=== PATIENT | female | born 1975 | race Caucasian/White ===

== ENCOUNTER → 2016-09-15 | Outpatient (CLI) | payer OTHER ==
--- NOTE | 2016-09-18 11:50 | WOMENS IMAGING REPORT ---
EXAM DESCRIPTION: BILAT SCREENING MAMMO W/CAD COMPLETED DATE/TIME: 09/18/2016 8:06 am REASON FOR STUDY: ROUTINE SCREENING; Z12.31 Z12.31 ENCNTR SCREEN MAMMOGRAM FOR MALIGNANT NEOPLASM O F SHILPA COMPARISON: None. TECHNIQUE: Standard craniocaudal and mediolateral oblique views of each breast recorded using [place] acquisition. LIMITATIONS: None. FINDINGS: No masses, calcifications or architectural distortion. No areas of suspicion. Read with the assistance of CAD. .[facility] - R2 Cenova Version 1.3 .[facility] Imaging - R2 Cenova Version 1.3 .[facility] - R2 Cenova Version 2.4 .[facility] Cenova Version 2.4 .[facility] - R2 Casting Repairer Version 9.2 IMPRESSION: NORMAL MAMMOGRAM. BIRADS 1. BREAST DENSITY: b. There are scattered areas of fibroglandular density. BIRAD: 1 NEGATIVE RECOMMENDATION: ROUTINE SCREENING COMMENT: The patient has been notified of the results by letter per SA requirements. Additional no tification policies are in place for contacting patient with suspicious or incomplete findings. Quality ID #225: The [employer] recommends an annual screening mammogram for women aged 40 years or over. This facility utilizes a reminder system to ensure that all patients receive reminder letters, and/or direct phone calls for appointments. This includes reminders for routine scr eening mammograms, diagnostic mammograms, or other Breast Imaging Interventions when appropriate. Th is patient will be placed in the appropriate reminder system. The [employer] (ACR) has developed recommendations for screening MRI of the breast s in certain patient populations, to be used in conjunction with mammography. Breast MRI surveillanc e may be appropriate for women with more than 20% lifetime risk of developing breast cancer as deter mined by genetic testing, significant family history of the disease, or history of mantle radiation f or Hodgkins Disease. ACR Practice Guidelines 2008. TECHNICAL DOCUMENTATION: FINDING NUMBER: (1) ASSESSMENT: (1) JOB ID: [id number] [employer]- All Rights Reserved
== END ==
LOC: RAD 14:57
PROVIDERS: ATTEND Family Medicine
DX: Z12.31 Encounter for screening mammogram for malignant neoplasm of breast (principal)
CPT/HCPCS: 77067; G0202

== ENCOUNTER → 2017-11-13 | Outpatient (CLI) | payer OTHER ==
--- NOTE | 2017-11-13 16:14 | WOMENS IMAGING REPORT ---
EXAM DESCRIPTION: BILAT SCREENING MAMMO W/CAD COMPLETED DATE/TIME: 11/13/2017 3:49 pm REASON FOR STUDY: SCREENING MAMMO Z12.31 ENCNTR SCREEN MAMMOGRAM FOR MALIGNANT NEOPLASM OF [place]ILPA COMPARISON: 2016 TECHNIQUE: Standard craniocaudal and mediolateral oblique views of each breast recorded using digita l acquisition. LIMITATIONS: None. FINDINGS: RIGHT BREAST MASSES: No suspicious masses. CALCIFICATIONS: No new or suspicious calcifications. ARCHITECTURAL DISTORTION: None. DEVELOPING DENSITY: Upper inner quadrant 12 o'clock about 4 cm deep to the nipple. ASYMMETRY: None noted. OTHER: No other significant findings. LEFT BREAST MASSES: No suspicious masses. CALCIFICATIONS: No new or suspicious calcifications. ARCHITECTURAL DISTORTION: None. DEVELOPING DENSITY: None. ASYMMETRY: None noted. OTHER: No other significant findings. Read with the assistance of CAD. .[facility] - R2 Cenova Version 1.3 .[facility] - R2 Cenova Version 1.3 .[facility] - R2 Cenova Version 2.4 .[facility] - R2 Cenova Version 2.4 .[facility] - R2 Electrical Construction Project Manager Version 9.2 IMPRESSION: Developing density right breast. BREAST DENSITY: b. There are scattered areas of fibroglandular density. BIRAD: 0 Incomplete: Needs Additional Imaging Evaluation and/or prior Mammograms for Comparison. RECOMMENDATION: RECOMMENDED FOLLOW-UP: True lateral cone compression views and potential ultrasound of the right breast. The patient will be contacted for additional imaging. COMMENT: The patient has been notified of the results by letter per SA requirements. Additional no tification policies are in place for contacting patient with suspicious or incomplete findings. Quality ID #225: The [employer] recommends an annual screening mammogram for women aged 40 years or over. This facility utilizes a reminder system to ensure that all patients receive reminder letters, and/or direct phone calls for appointments. This includes reminders for routine scr eening mammograms, diagnostic mammograms, or other Breast Imaging Interventions when appropriate. Th is patient will be placed in the appropriate reminder system. The [employer] (ACR) has developed recommendations for screening MRI of the breast s in certain patient populations, to be used in conjunction with mammography. Breast MRI surveillanc e may be appropriate for women with more than 20% lifetime risk of developing breast cancer as deter mined by genetic testing, significant family history of the disease, or history of mantle radiation f or Hodgkins Disease. ACR Practice Guidelines 2008. TECHNICAL DOCUMENTATION: FINDING NUMBER: (1) ASSESSMENT: (1) JOB ID: [id number] [employer]- All Rights Reserved Reading location - IP/workstation name: [email or web address]
== END ==
LOC: WI 14:34
PROVIDERS: ATTEND Family Medicine
DX: Z12.31 Encounter for screening mammogram for malignant neoplasm of breast (principal); R92.8 Other abnormal and inconclusive findings on diagnostic imaging of breast
CPT/HCPCS: 77067

== ENCOUNTER → 2017-11-29 | Outpatient (CLI) | payer OTHER ==
--- NOTE | 2017-11-29 09:28 | WOMENS IMAGING REPORT ---
EXAM DESCRIPTION: RIGHT DIAGNOSTIC MAMMO W/CAD COMPLETED DATE/TIME: 11/29/2017 8:40 am REASON FOR STUDY: NODULAR DENSITY N63.41 UNSPECIFIED LUMP IN RIGHT BREAST, SUBAREOLAR COMPARISON: 11/13/2017 TECHNIQUE: True lateral, CC, MLO and cone compression views. LIMITATIONS: None. FINDINGS: BREAST: right MASSES: No suspicious masses. CALCIFICATIONS: No new or suspicious calcifications. ARCHITECTURAL DISTORTION: None. DEVELOPING DENSITY: None. ASYMMETRY: None noted. OTHER: No other significant findings. IMPRESSION: No evidence of malignancy. BREAST DENSITY: b. There are scattered areas of fibroglandular density. BIRAD: 1 Negative. RECOMMENDATION: RECOMMENDED FOLLOW UP: Birads 1 or 2: The patient should resume routine screening . SPECIFIC INTERVENTION/IMAGING/CONSULTATION RECOMMENDED:No additional intervention/ imaging/consultati on needed at this time. COMMUNICATION:The imaging findings were not discussed with the patient. Her referring provider has be en notified of the findings. COMMENT: The patient has been notified of the results by letter per SA requirements. Additional no tification policies are in place for contacting patient with suspicious or incomplete findings. Quality ID #225: The [employer] recommends an annual screening mammogram for women aged 40 years or over. This facility utilizes a reminder system to ensure that all patients receive reminder letters, and/or direct phone calls for appointments. This includes reminders for routine scr eening mammograms, diagnostic mammograms, or other Breast Imaging Interventions when appropriate. Th is patient will be placed in the appropriate reminder system. The [employer] (ACR) has developed recommendations for screening MRI of the breast s in certain patient populations, to be used in conjunction with mammography. Breast MRI surveillanc e may be appropriate for women with more than 20% lifetime risk of developing breast cancer as deter mined by genetic testing, significant family history of the disease, or history of mantle radiation f or Hodgkins Disease. ACR Practice Guidelines 2008. TECHNICAL DOCUMENTATION: FINDING NUMBER: (1) ASSESSMENT: (1) JOB ID: [id number] [employer]- All Rights Reserved Reading location - IP/workstation name: [facility]-[email or web address]
== END ==
LOC: WI 08:22
PROVIDERS: ATTEND Family Medicine
DX: N63.41 Unspecified lump in right breast, subareolar (principal)

== ENCOUNTER 2018-10-22 17:48 | Emergency (ER) | payer OTHER ==
--- NOTE | 2018-10-22 18:57 | ER Document Report ---
ED Medical Screen (RME) - General Chief Complaint: Breast Problem Stated Complaint: SWOLLEN BREAST Time Seen by Provider: 10/22/18 18:49 Primary Care Provider: GINNY SWENSON MD [Primary Care Provider] - Follow up as needed Mode of Arrival: Ambulatory Information source: Patient Notes: Patient presents today with complaints of feeling swelling in her left breast. Patient's mother has history of breast cancer. Patient reports she felt like she had some heartburn today and when her daughter felt her chest she noticed of swelling in her left breast. She reports both breasts are the same size. She denies nipple discharge. Reports she had an abnormal mammogram last November. She is scheduled for another mammogram this November. She denies fever vomiting diarrhea. Patient has history of mental disorders but denies diabetes cardiac disease. I have greeted and performed a rapid initial assessment of this patient. A comprehensive ED assessment and evaluation of the patient, analysis of test results and completion of the medical decision making process will be conducted by additional ED providers. Dictation of this chart was performed using voice recognition software; therefore, there may be some unintended grammatical errors. TRAVEL OUTSIDE OF THE [place] IN LAST 30 DAYS: No - Related Data Allergies/Adverse Reactions: metronidazole [From Flagyl] Allergy (Severe, Verified 10/22/18 17:51) rash/hives tetracycline [Tetracycline] Allergy (Severe, Verified 10/22/18 17:51) Hives sulfamethoxazole [From Septra] Allergy (Verified 10/22/18 17:51) trimethoprim [From Septra] Allergy (Verified 10/22/18 17:51) Past Medical History - Past Medical History Cardiac Medical History: Denies: Hx Coronary Artery Disease, Hx Heart Attack, Hx Hypertension Pulmonary Medical History: Reports: Hx Pneumonia Denies: Hx Asthma, Hx Bronchitis, Hx COPD Neurological Medical History: Denies: Hx Cerebrovascular Accident, Hx Seizures Musculoskeltal Medical History: Denies Hx Arthritis Psychiatric Medical History: Reports: Hx Bipolar Disorder Past Surgical History: Reports: Hx Appendectomy, Hx Section, Hx Hysterectomy - Immunizations Hx Diphtheria, Pertussis, Tetanus Vaccination: Yes Physical Exam - Vital signs Vitals: Temp Pulse Resp BP Pulse Ox 98.3 F 85 14 114/58 L 97 10/22/18 17:55 10/22/18 17:55 10/22/18 17:55 10/22/18 17:55 10/22/18 17:55 Course - Vital Signs Vital signs: Temp Pulse Resp BP Pulse Ox 98.3 F 85 14 114/58 L 97 10/22/18 17:55 10/22/18 17:55 10/22/18 17:55 10/22/18 17:55 10/22/18 17:55 Doctor's Discharge - Discharge Referrals: GINNY SWENSON MD [Primary Care Provider] - Follow up as needed
[2018-10-22 22:56] VITALS: BP 105/63
--- NOTE | 2018-10-22 23:06 | ER Document Report ---
ED General - General Chief Complaint: Breast Problem Stated Complaint: SWOLLEN BREAST Time Seen by Provider: 10/22/18 18:49 Primary Care Provider: GINNY SWENSON MD [Primary Care Provider] - Follow up as needed Mode of Arrival: Ambulatory TRAVEL OUTSIDE OF THE [place] IN LAST 30 DAYS: No - HPI Notes: Patient is a 43-year-old female presents emergency department for evaluation of the abnormality on breast exam. She was having heartburn earlier today. Her daughter had her hand on her chest, noted an asymmetry in her chest, so she presents here to the emergency department for evaluation. The patient has been having regular mammograms. Her last one was in November. She states that it was noted to be abnormal, but it was found that it was most likely just secondary to overlying tissues. She denies any abnormal weight loss. No nipple inversion. No nipple discharge. No night sweats. - Related Data Allergies/Adverse Reactions: metronidazole [From Flagyl] Allergy (Severe, Verified 10/22/18 17:51) rash/hives tetracycline [Tetracycline] Allergy (Severe, Verified 10/22/18 17:51) Hives sulfamethoxazole [From Septra] Allergy (Verified 10/22/18 17:51) trimethoprim [From Septra] Allergy (Verified 10/22/18 17:51) Past Medical History - General Information source: Patient - Social History Smoking Status: Current Every Day Smoker Chew tobacco use (# tins/day): No Frequency of alcohol use: None Drug Abuse: None Family History: Malignancy - Colon cancer in father, breast cancer in mother Patient has suicidal ideation: No Patient has homicidal ideation: No - Past Medical History Cardiac Medical History: Denies: Hx Coronary Artery Disease, Hx Heart Attack, Hx Hypertension Pulmonary Medical History: Reports: Hx Pneumonia Denies: Hx Asthma, Hx Bronchitis, Hx COPD Neurological Medical History: Denies: Hx Cerebrovascular Accident, Hx Seizures Renal/ Medical History: Denies: Hx Peritoneal Dialysis Musculoskeletal Medical History: Denies Hx Arthritis Psychiatric Medical History: Reports: Hx Bipolar Disorder Past Surgical History: Reports: Hx Appendectomy, Hx Section, Hx Hysterectomy - Immunizations Hx Diphtheria, Pertussis, Tetanus Vaccination: Yes Review of Systems - Review of Systems Constitutional: No symptoms reported EENT: No symptoms reported Cardiovascular: No symptoms reported Respiratory: No symptoms reported Gastrointestinal: No symptoms reported Genitourinary: No symptoms reported Female Genitourinary: No symptoms reported Musculoskeletal: No symptoms reported Skin: No symptoms reported Neurological/Psychological: No symptoms reported Physical Exam - Vital signs Vitals: Temp Pulse Resp BP Pulse Ox 98.3 F 85 14 114/58 L 97 10/22/18 17:55 10/22/18 17:55 10/22/18 17:55 10/22/18 17:55 10/22/18 17:55 - Notes Notes: Vital signs reviewed, please refer to chart. Head is normocephalic, atraumatic. Pupils equal round, reactive to light. Neck is supple without meningismus. Heart is regular rate and rhythm. Lungs are clear to auscultation bilaterally. Examination of the breast feels no obvious deformity. They are symmetrical. Breast exam is performed with ALEX Sinha, supervising gate tender in the room. There is an non-discrete firmness noted in the left breast, just left of the sternum. No overlying skin changes. No other discrete masses are palpated. Nipples are not inverted, no discharge. Abdomen is soft, nontender, normoactive bowel sounds throughout. Extremities without cyanosis, clubbing. Posterior calves are nontender. Peripheral pulses are equal. Skin is warm and dry. Course - Re-evaluation Re-evalutation: 10/22/18 23:09 Patient presents emergency department for evaluation. She does have palpable abnormality to her breast tissue on the left. I am unable to palpate a discrete mass, and do not believe that an ultrasound would be of use here through the emergency department. However, given her significant family history, I do recommend that she have very close follow-up of this. She voiced understanding to this. [facility]. She is to return the emergency department for worsening or concerning symptoms of any sort. - Vital Signs Vital signs: Temp Pulse Resp BP Pulse Ox 97.9 F 83 18 105/63 97 10/22/18 22:54 10/22/18 22:54 10/22/18 22:54 10/22/18 22:54 10/22/18 22:54 Discharge - Discharge Clinical Impression: Left breast mass Condition: Stable Disposition: HOME, SELF-CARE Instructions: Breast Lumps ([facility]) Additional Instructions: There was an abnormality palpated on your breast exam today. Given your family history, it is urgent that you obtain an mammogram and/or ultrasound as soon as possible. [facility]. If you develop worsening or new concerning symptoms of any sort, return immediately to the emergency department for evaluation. Referrals: GINNY SWENSON MD [Primary Care Provider] - Follow up as needed
== END 2018-10-22 23:00 | disposition home or self-care (01) ==
LOC: ER 17:48
DX: N63.0 Unspecified lump in unspecified breast (principal); Z88.1 Allergy status to other antibiotic agents; F17.200 Nicotine dependence, unspecified, uncomplicated; Z80.3 Family history of malignant neoplasm of breast; Z80.0 Family history of malignant neoplasm of digestive organs
CPT/HCPCS: 99283

== ENCOUNTER → 2018-11-20 | Outpatient (CLI) | payer OTHER ==
--- NOTE | 2018-11-21 10:36 | WOMENS IMAGING REPORT ---
EXAM DESCRIPTION: 3D DX MAMMO BILAT; U/S BREAST UNILAT LIMITED COMPLETED DATE/TIME: 11/20/2018 12:49 pm; 11/20/2018 1:35 pm REASON FOR STUDY: R92.2 ABNORMAL FINDING IN LEFT BREAST; LT BREAST R92.2 R92.0 MAMMOGRAPHIC MICROCA LCIFICATION FOUND ON DX IMAGING OF COMPARISON: 11/13/2017 and 09/15/2016. EXAM PARAMETERS: Standard craniocaudal and mediolateral oblique views of each breast recorded using digital acquisition and breast tomosynthesis. Additional true lateral images of the left breast acquired with tomosynthesis. Read with the assistance of CAD: .[employer] - [employer] Pulverizing Operator Version 9.2 LIMITATIONS: None. FINDINGS: RIGHT BREAST MASSES: No suspicious masses. CALCIFICATIONS: No new or suspicious calcifications. ARCHITECTURAL DISTORTION: None. DEVELOPING DENSITY: None. ASYMMETRY: None noted. OTHER: No other significant findings. LEFT BREAST MASSES: No suspicious masses. CALCIFICATIONS: No new or suspicious calcifications. ARCHITECTURAL DISTORTION: None. DEVELOPING DENSITY: None. ASYMMETRY: None noted. OTHER: No other significant finding. BREAST ULTRASOUND: TECHNIQUE: Static and dynamic grayscale images acquired of the left breast, 12 o'clock location, in t he specific areas of clinical/mammographic concern. Selected color Doppler images recorded. ELASTOGRAPHY PERFORMED: No. LIMITATIONS: None. FINDINGS: MASS: No mass identified. Normal glandular tissue. ELASTOGRAPHY CHARACTERISTICS: Not applicable. OTHER: No other significant finding. IMPRESSION: Stable bilateral mammogram. No worrisome mammographic findings in either breast. No wo rrisome sonographic findings in the superior left breast in the area of concern. BREAST DENSITY: b. There are scattered areas of fibroglandular density. BIRAD: ASSESSMENT: 1 Negative. RECOMMENDATION: RECOMMENDED FOLLOW UP: Birads 1 or 2: No breast imaging finding to explain the patie nt's presenting complaint. Further intervention should be based on the degree of clinical suspicion. SPECIFIC INTERVENTION/IMAGING/CONSULTATION RECOMMENDED:No additional intervention/ imaging/consultati on needed at this time. COMMUNICATION:The imaging findings were not discussed with the patient. Her referring provider has be en notified of the findings. COMMENT: The patient has been notified of the results by letter per MQSA requirements. Additional no tification policies are in place for contacting patient with suspicious or incomplete findings. Quality ID #225: The [employer] recommends an annual screening mammogram for women aged 40 years or over. This facility utilizes a reminder system to ensure that all patients receive reminder letters, and/or direct phone calls for appointments. This includes reminders for routine scr eening mammograms, diagnostic mammograms, or other Breast Imaging Interventions when appropriate. Th is patient will be placed in the appropriate reminder system. TECHNICAL DOCUMENTATION: FINDING NUMBER: (1) ASSESSMENT: (1) JOB ID: [id number] [employer]- All Rights Reserved Reading location - IP/workstation name: [email or web address]
--- NOTE | 2018-11-21 10:36 | WOMENS IMAGING REPORT ---
EXAM DESCRIPTION: 3D DX MAMMO BILAT; U/S BREAST UNILAT LIMITED COMPLETED DATE/TIME: 11/20/2018 12:49 pm; 11/20/2018 1:35 pm REASON FOR STUDY: R92.2 ABNORMAL FINDING IN LEFT BREAST; LT BREAST R92.2 R92.0 MAMMOGRAPHIC MICROCA LCIFICATION FOUND ON DX IMAGING OF COMPARISON: 11/13/2017 and 09/15/2016. EXAM PARAMETERS: Standard craniocaudal and mediolateral oblique views of each breast recorded using digital acquisition and breast tomosynthesis. Additional true lateral images of the left breast acquired with tomosynthesis. Read with the assistance of CAD: .[employer] - [employer] Carpenter Inspector Version 9.2 LIMITATIONS: None. FINDINGS: RIGHT BREAST MASSES: No suspicious masses. CALCIFICATIONS: No new or suspicious calcifications. ARCHITECTURAL DISTORTION: None. DEVELOPING DENSITY: None. ASYMMETRY: None noted. OTHER: No other significant findings. LEFT BREAST MASSES: No suspicious masses. CALCIFICATIONS: No new or suspicious calcifications. ARCHITECTURAL DISTORTION: None. DEVELOPING DENSITY: None. ASYMMETRY: None noted. OTHER: No other significant finding. BREAST ULTRASOUND: TECHNIQUE: Static and dynamic grayscale images acquired of the left breast, 12 o'clock location, in t he specific areas of clinical/mammographic concern. Selected color Doppler images recorded. ELASTOGRAPHY PERFORMED: No. LIMITATIONS: None. FINDINGS: MASS: No mass identified. Normal glandular tissue. ELASTOGRAPHY CHARACTERISTICS: Not applicable. OTHER: No other significant finding. IMPRESSION: Stable bilateral mammogram. No worrisome mammographic findings in either breast. No wo rrisome sonographic findings in the superior left breast in the area of concern. BREAST DENSITY: b. There are scattered areas of fibroglandular density. BIRAD: ASSESSMENT: 1 Negative. RECOMMENDATION: RECOMMENDED FOLLOW UP: Birads 1 or 2: No breast imaging finding to explain the patie nt's presenting complaint. Further intervention should be based on the degree of clinical suspicion. SPECIFIC INTERVENTION/IMAGING/CONSULTATION RECOMMENDED:No additional intervention/ imaging/consultati on needed at this time. COMMUNICATION:The imaging findings were not discussed with the patient. Her referring provider has be en notified of the findings. COMMENT: The patient has been notified of the results by letter per MQSA requirements. Additional no tification policies are in place for contacting patient with suspicious or incomplete findings. Quality ID #225: The [employer] recommends an annual screening mammogram for women aged 40 years or over. This facility utilizes a reminder system to ensure that all patients receive reminder letters, and/or direct phone calls for appointments. This includes reminders for routine scr eening mammograms, diagnostic mammograms, or other Breast Imaging Interventions when appropriate. Th is patient will be placed in the appropriate reminder system. TECHNICAL DOCUMENTATION: FINDING NUMBER: (1) ASSESSMENT: (1) JOB ID: [id number] [employer]- All Rights Reserved Reading location - IP/workstation name: [email or web address]
== END ==
LOC: WI 12:20
PROVIDERS: ATTEND Family Medicine
DX: R92.0 Mammographic microcalcification found on diagnostic imaging of breast (principal)
CPT/HCPCS: 76642; 77066; G0279; 77062

== ENCOUNTER 2020-04-12 21:57 | Emergency (ER) | payer OTHER ==
[2020-04-12] MEDS ORDERED: KETOROLAC TROMETHAMINE INJ/PF 30 MG/1 ML SDV IM ONE (22:40)
[2020-04-12] MEDS ORDERED: DEXAMETHASONE SOD PHOS INJ 10 MG/1 ML VIAL IM ONE (22:40)
[2020-04-12] MEDS ORDERED: METOCLOPRAMIDE HCL INJ/PF 10 MG/2 ML SDV IM ONE (22:40)
--- NOTE | 2020-04-12 22:52 | ER Document Report ---
ED Headache - General Chief Complaint: Headache Stated Complaint: MIGRANE Time Seen by Provider: 04/12/20 22:29 Primary Care Provider: GINNY SWENSON MD [Primary Care Provider] - Follow up as needed Mode of Arrival: Ambulatory Information source: Patient TRAVEL OUTSIDE OF THE [place] IN LAST 30 DAYS: No - HPI Patient complains to provider of: Headache Notes: Patient here with complaints of headache. She states she is been dealing with headaches intermittently for the last year. She has been seeing the [facility] and is in the process of getting referred to neurology for follow-up. She denies any new falls, injuries or trauma. She is on blood thinning medications. This headache started this morning. Its diffuse. Nothing seems to make it better or worse. She denies any associated blurred or loss of vision. No numbness, tingling, weakness. No nausea, vomiting, diarrhea. No neck stiffness. Was not a thunderclap's, sudden onset headache. This feels similar to the headache she has been experiencing for the last year. She denies any chest pain or shortness of breath. No rash. No abdominal pain. No other complaints at this time. Pain is moderate and constant. - Related Data Allergies/Adverse Reactions: metronidazole [From Flagyl] Allergy (Severe, Verified 04/12/20 22:23) rash/hives tetracycline [Tetracycline] Allergy (Severe, Verified 04/12/20 22:23) Hives sulfamethoxazole [From Septra] Allergy (Verified 04/12/20 22:23) trimethoprim [From Septra] Allergy (Verified 04/12/20 22:23) Home Medications: PTDID NOT BRING LIST Past Medical History - Social History Smoking Status: Former Smoker Frequency of alcohol use: None Drug Abuse: None Family History: Malignancy - Past Medical History Cardiac Medical History: Denies: Hx Coronary Artery Disease, Hx Heart Attack, Hx Hypertension Pulmonary Medical History: Reports: Hx Pneumonia Denies: Hx Asthma, Hx Bronchitis, Hx COPD Neurological Medical History: Denies: Hx Cerebrovascular Accident, Hx Seizures Renal/ Medical History: Denies: Hx Peritoneal Dialysis Musculoskeletal Medical History: Denies Hx Arthritis Psychiatric Medical History: Reports: Hx Bipolar Disorder Past Surgical History: Reports: Hx Appendectomy, Hx Section, Hx Hysterectomy - Immunizations Hx Diphtheria, Pertussis, Tetanus Vaccination: Yes Review of Systems - Review of Systems -: Yes All other systems reviewed and negative Physical Exam - Vital signs Vitals: Temp Pulse BP Pulse Ox 98.0 F 86 129/59 H 100 04/12/20 22:02 04/12/20 22:02 04/12/20 22:02 04/12/20 22:02 - Notes Notes: GENERAL: alert, cooperative, nontoxic, no distress. HEAD: normocephalic, atraumatic EYES: conjunctiva pink without discharge, no external redness or swelling. Pupils are equal, round, reactive to light. Extraocular muscles intact bilaterally. EARS: no external swelling, no external redness NOSE: atraumatic, no external swelling MOUTH/THROAT: mucous membranes moist and pink, posterior pharynx without erythema, swelling, exudate. No trismus or drooling. NECK: soft, supple, full range of motion, no meningismus. CHEST: no distress, lungs clear and equal throughout. No wheezing, rales, rhonchi. CARDIAC: regular rate and rhythm, no murmur BACK: full range of motion EXTREMITIES: full range of motion of all extremities. No redness, no swelling. NEURO: alert and oriented x 3, cranial nerves II through XII are grossly intact. Upper and lower extremities are equal throughout. Normal sensation. No focal deficits, full range of motion of all extremities. normal finger to nose. PYSCH: appropriate mood, affect. Patient is cooperative. SKIN: pink, warm, dry, no rash. Course - Re-evaluation Re-evalutation: 04/12/20 22:49 Patient is nontoxic-appearing with stable vitals. Here with complaints of a headache. She has been dealing with headaches for the last year. She has [facility]. This is not a sudden onset, thunderclap headache. No sign of subarachnoid hemorrhage, intracranial hemorrhage, meningitis. She has a nonfocal neurological exam. She states that taking Excedrin occasionally helps her headaches. She denies any recent falls or injury. Do not believe that the patient requires emergent CT imaging at this time. I do believe that if she continues to have these headaches that she will require some sort of advanced imaging. Patient will be given a shot of Toradol, Reglan and Decadron here in the emergency department with instructions to go home and take 50 mg of Benadryl p.o. since she drove her self here. Follow-up with her doctor at the next available appointment. She can follow-up with neurology at the next available appointment. Follow-up sooner for worsening pain, fever, blurred or lost vision, numbness, tingling, weakness, fever, neck stiffness, any further concerns. - Vital Signs Vital signs: Temp Pulse Resp BP Pulse Ox 98.0 F 86 129/59 H 100 04/12/20 22:02 04/12/20 22:02 04/12/20 22:02 04/12/20 22:02 - Laboratory Results Critical Laboratory Results Reviewed: No Critical Results - Radiology Results Critical Radiology Results Reviewed: No Critical Results Discharge - Discharge Clinical Impression: Headache Qualifiers: Headache type: unspecified Headache chronicity pattern: episodic headache Intractability: not intractable Qualified Code(s): R51.9 - Headache, unspecified Condition: Stable Disposition: HOME, SELF-CARE Instructions: Headache ([facility]) Additional Instructions: When you get home, take 50 mg of Benadryl orally. Drink lots of fluids. Follow-up with your doctor at the next available appointment. Follow-up with neurology at the next available appointment. Follow-up sooner for worsening pain, fever, neck stiffness, blurred or loss of vision, persistent vomiting, numbness, tingling, weakness, any further concerns. Referrals: GINNY SWENSON MD [Primary Care Provider] - Follow up as needed ROBINSON MCKEON MD [EMERITUS] - Follow up as needed
[2020-04-13 03:01] VITALS: BP 130/64
== END 2020-04-12 23:17 | disposition home or self-care (01) ==
LOC: ER 21:57
DX: R51.9 Headache, unspecified (principal); Z79.899 Other long term (current) drug therapy; Z87.891 Personal history of nicotine dependence; Z88.1 Allergy status to other antibiotic agents
CPT/HCPCS: 99284; 96372; J1885; J2765; J1100

== ENCOUNTER → 2020-05-03 | Outpatient (CLI) | payer OTHER ==
--- NOTE | 2020-05-03 10:43 | WOMENS IMAGING REPORT ---
EXAM DESCRIPTION: 3D SCREENING MAMMO BILAT IMAGES COMPLETED DATE/TIME: 05/03/2020 10:04 am REASON FOR STUDY: ROUTINE SCREENING MAMMOGRAM Z12.31 Z12.31 ENCNTR SCREEN MAMMOGRAM FOR MALIGNANT N EOPLASM OF SHILPA COMPARISON: 2017 and subsequent. EXAM PARAMETERS: Standard craniocaudal and mediolateral oblique views of each breast recorded using digital acquisition and breast tomosynthesis. Read with the assistance of CAD. .[facility] - [employer] Version 9.2 LIMITATIONS: None. FINDINGS: RIGHT BREAST MASSES: No suspicious masses. CALCIFICATIONS: No new or suspicious calcifications. ARCHITECTURAL DISTORTION: None. ASYMMETRY: None noted. OTHER: No other significant findings. LEFT BREAST MASSES: No suspicious masses. CALCIFICATIONS: No new or suspicious calcifications. ARCHITECTURAL DISTORTION: Potential focus of distortion, focal asymmetry in the left breast mid depth close to 12 o'clock. This lies over 5.5 cm from the nipple seen on CC view only. ASYMMETRY: None noted. OTHER: No other significant findings. IMPRESSION: Focal asymmetry/distortion left breast. 0 Incomplete: Needs Additional Imaging Evaluation and/or prior Mammograms for Comparison. BREAST DENSITY: c. The breasts are heterogeneously dense, which may obscure small masses. BIRAD: ASSESSMENT: 0 Incomplete: Needs Additional Imaging Evaluation and/or prior Mammograms for C omparison. RECOMMENDATION: RECOMMENDED FOLLOW-UP: Spot Compression tomosynthesis views with Ultrasound if angel cated. ADDITIONAL RECOMMENDATION- No additional recommendations. The patient will be contacted for additional imaging. COMMENT: The patient has been notified of the results by letter per [facility] requirements. Additional no tification policies are in place for contacting patient with suspicious or incomplete findings. Quality ID #[id number]: The [employer] recommends an annual screening mammogram for women aged 40 years or over. This facility utilizes a reminder system to ensure that all patients receive reminder letters, and/or direct phone calls for appointments. This includes reminders for routine scr eening mammograms, diagnostic mammograms, or other Breast Imaging Interventions when appropriate. Th is patient will be placed in the appropriate reminder system. TECHNICAL DOCUMENTATION: FINDING NUMBER: (1) ASSESSMENT: (1) JOB ID: [id number] 2010 [employer]- All Rights Reserved Reading location - IP/workstation name: [email or web address]
== END ==
LOC: WI 09:54
PROVIDERS: ATTEND Family Medicine
DX: Z12.31 Encounter for screening mammogram for malignant neoplasm of breast (principal); N64.89 Other specified disorders of breast
CPT/HCPCS: 77063; 77067